=== PATIENT | female | born 1975 | race Caucasian/White ===

== ENCOUNTER 2023-08-15 07:21 | Day surgery (SDC) | payer OTHER ==
--- NOTE | 2023-08-12 09:21 | RAD REPORT ---
EXAM DESCRIPTION: RAD - Chest Pa And Lat (2 Views) - 08/12/2023 9:01 am CLINICAL HISTORY: Pre op pending mass excision. Concern for airspace disease COMPARISON: HEAD BRAIN W O CONTRAST dated 06/29/2014 TECHNIQUE: PA and lateral views of the chest were obtained. FINDINGS: The lungs are clear. Heart size is normal and central vasculature is within normal limits. No pleural effusion or pneumothorax seen. No acute bony finding noted. IMPRESSION: No acute cardiopulmonary process.
[2023-08-12 09:24] LABS: Absolute Lymphocytes (CBC) 3.1 K/uL (0.7-4.9); Lymphocytes % 37.9 % (15.3-44.8); MCV 81.2 fL (80-100); MPV 7.6 fL (7.6-11.3); Platelets 646 thou/uL (152-406); RBC Red Blood Cell Count 4.67 M/uL (3.86-4.86)
[2023-08-12 09:38] LABS: Potassium 5.1 mEq/L (3.5-5.1)
[2023-08-15] MEDS: Ringers Lactate 1,000 ML IV ONE (07:45)
[2023-08-15] MEDS ORDERED: BUPIVACAINE 0.5% PF 10 ML VIAL ONE (07:46)
[2023-08-15] MEDS ORDERED: LIDOCAINE 1% MPF 5 ML VIAL ONE (08:06)
[2023-08-15] MEDS ORDERED: FENTANYL CITR 100 MCG/2 ML ONE (08:06)
[2023-08-15] MEDS ORDERED: KETOROLAC 30 MG/ML INJ ONE (08:06)
[2023-08-15] MEDS ORDERED: propofoL 200 MG/20 ML VIAL IV ONE (08:06)
[2023-08-15] MEDS ORDERED: ONDANSETRON 4 MG/2 ML VIAL ONE (08:06)
[2023-08-15] MEDS ORDERED: MIDAZOLAM HCL 2 MG/2 ML INJ ONE (08:06)
[2023-08-15] MEDS: CIPROFLOXACIN 400mg IV 400 MG/200 ML BAG IV ONE (08:50)
[2023-08-15] MEDS: LIDOCAINE HCL/EPINEPHRINE 20 ML MDV ONE (08:51)
--- NOTE | 2023-08-15 09:16 | P.BOP ---
Preoperative diagnosis: tender enlarging forehead subQ mass Postoperative diagnosis: same Primary procedure: Excisional biopsy of tender enlarging forehead subQ mass Cosmetology Instructor: Cynthia Petersen ([place]) Estimated blood loss: <5cc Specimen: mass Findings: mass Anesthesia: General Complications: None Transferred to: Recovery Room Condition: Good
[2023-08-15] MEDS: ONDANSETRON 4 MG/2 ML VIAL ONE (09:42)
[2023-08-15] MEDS: CODEINE 30MG/APAP 300MG TAB ONE (10:30)
[2023-08-15 11:30] VITALS: BP 118/88; TEMP 97.3; O2SAT 98
--- NOTE | 2023-08-15 11:45 | OP ---
Date of Procedure: 08/15/2023 Surgeon: Blaine Méndez MD Instructor Ground Services: Cynthia Johnson. Preoperative Diagnosis: Tender enlarging forehead subcutaneous mass. Postoperative Diagnosis: Tender enlarging forehead subcutaneous mass. Procedure: Excisional biopsy of tender enlarging forehead subcutaneous mass. See H and P for size. Estimated Blood Loss: Less than 5 cc. Specimen: Mass. Finding: Mass. Anesthesia: General plus local. Indications: This is the case of a 47-year-old patient having an enlarging mass in the forehead. Th e benefits, alternatives, and risks of excisional biopsy fully explained, which include, but not limi tila to infection, bleeding, damage to adjacent structures, anesthesia complication, recurrence, SC, e shereen . She also understands this may not relieve the symptoms. She might need more than one jamshid gical intervention. She understands she may have some numbness. She may have some scar or even move ment issues in the forehead. This was attached to the fascia of the muscle partially, but does not p enetrate the muscle. It is near the bone, does not attach to it. Procedure In Detail: The patient was brought to the operating room, placed in supine position, anest hesia was done without complication. A time-out was called. The forehead was prepped and draped in sterile fashion. Previously, we marked the area by me and the patient in the operating room. We mad e an incision. This mostly came, but also allowed to remove the mass completely and with the help of blunt dissection, we proceeded to separate the structures around the area, which means subcutaneous tissue and then this did right partially on the bone and partially on the muscle fascia. Carefully m ethodically, we proceeded to remove this in 1 unit making sure we find the plane perfectly, so we do not leave any pieces behind. Once the mass was excised, we irrigated the area, obtained hemostasis, and then closed the area after local anesthetic, complete hemostasis. We closed the area with 3-0 ch romic and then Dermabond like adhesive. The patient tolerated the procedure well. The area was cove red with sterile dressings. The patient was sent to recovery in stable condition. ATA/RAMYA Voice ID: [id number] Report ID: [id number]
--- NOTE | 2023-08-15 11:45 | DS ---
Diagnosis: Tender enlarging forehead subcutaneous mass. Procedure: Excisional biopsy of tender enlarging forehead subcutaneous mass. Disposition: Home. Activity: As tolerated. No heavy lifting. Follow up in my office in 1 week. Call for appointment at [phone]. Keep area dressings until we see her again in my office. MEGHAN Voice ID: [id number] Report ID: [id number]
--- NOTE | 2023-08-15 13:43 | EKG ---
Test Date: 2023-08-12 Test Time: 09:43:22 Operating Room Surgical Technician: LAONZO MEASUREMENT RESULTS: Intervals: Rate: 66 CO: 138 QRSD: 62 QT: 400 QTc: 419 [place]: P: 75 CO: 138 QRS: 73 T: 77 INTERPRETIVE STATEMENTS: Normal sinus rhythm Low voltage QRS Borderline ECG No previous ECG available for comparison Electronically Signed On 08-15-23 13:35:29 PYROMETER TEMPERATURE REGULATOR by Larry Chiang
== END 2023-08-15 11:03 | disposition home or self-care (01) ==
LOC: OR 07:21
PROVIDERS: ATTEND Surgery
PROC: 0JB10ZZ Excision of Face Subcutaneous Tissue and Fascia, Open Approach (ICD-10-PCS; principal; 2023-08-15 08:30)
DX: D17.0 Benign lipomatous neoplasm of skin and subcutaneous tissue of head, face and neck (principal); F41.9 Anxiety disorder, unspecified
CPT/HCPCS: 93005; 85025; 80048; 36415; 88304; 71046; 11443; J2704; J2001; J2250; J3010; J2405 ×2; J0744; J7120